=== PATIENT | female | born 1940 | race Caucasian/White ===

== ENCOUNTER 2021-03-19 12:19 | Emergency (ER) | payer OTHER, MEDICARE, SELFPAY ==
[2021-03-19 12:36] VITALS: BP 134/75; PULSE 82; RESP 16; TEMP 36.9; O2SAT 99
--- NOTE | 2021-03-19 12:41 | DI.RAD.S_ITS ---
PROCEDURE: XR FOREARM RT 2V INDICATIONS: fall, right FA pain TECHNIQUE: 2 views of the forearm were acquired. COMPARISON: None. FINDINGS: Bones: Subtle radiolucency and cortical irregularity involving distal radial shaft is seen concerning for subtle nondisplaced distal radial fracture. No suspicious bony lesions. Soft tissues: No suspicious soft tissue calcifications or masses. IMPRESSION: Suggestion of nondisplaced distal radial shaft fracture. Dictated by: Sukumar Sheikh M.D. on 03/19/2021 at 13:07 Approved by: Sukumar Sheikh M.D. on 03/19/2021 at 13:08
--- NOTE | 2021-03-19 14:07 | ED_ITS ---
HPI - Extremity Injury (Upper) General Chief Complaint: Extremity Injury, Upper Stated Complaint: Fall, Right Arm Injury Time Seen by Provider: 03/19/21 14:03 Source: patient Mode of arrival: Ambulatory Limitations: no limitations History of Present Illness HPI narrative: 80-year-old female nonsmoker with history of stage IV lung cancer presents with a family friend and a chief complaint of right forearm pain since suffering a ground level fall prior to her arrival. She had been in her normal state of health and was up hiking on [place] and she and her friend were attempting to take a selfie when she lost her balance from a seated position on a large rock and fell over onto her outstretched right arm. She now has pain in her wrist and forearm. She denies any head neck or back pain. She denies any chest pain or shortness of breath. She denies any prodromal symptoms and states this happened purely because she lost her balance. She has pain with pronation and supination of her right forearm but is otherwise well. She denies any elbow or shoulder pain. She denies numbness, tingling or weakness Related Data Previous Rx's Medication Instructions Recorded hydrocodone 5 mg-acetaminophen 325 1 tab PO Q4-6H PRN #14 tab 03/19/21 mg tablet Allergies Allergy/AdvReac Type Severity Reaction Status Date / Time No Known Drug Allergies Allergy Verified 03/19/21 12:40 Review of Systems Review of Systems Narrative: GENERAL: Denies chills, fatigue, malaise, fever, sweats. HEENT: Denies sinus pain, ear pain, sore throat, difficulty swallowing, dizziness. RESPIRATORY: Denies dyspnea, cough, wheezing, hemoptysis, sputum. CARDIOVASCULAR: Denies chest pain, palpitations, orthopnea, edema, GASTROINTESTINAL: Denies nausea, vomiting, abdominal pain, diarrhea, constipation, melena. : Denies dysuria, frequency, incontinence, hematuria, urinary retention. MUSCULOSKELETAL: See HPI SKIN: Denies rash, skin lesions, or other NEUROLOGIC: Denies weakness, headache, numbness, change in speech, confusion, s eizures, incoordination. PSYCHIATRIC: No concerning psychosocial issues. 12 point review of systems is negative except for those stated above Patient History Social History Smoking Status: Never smoker Smoking Status: Never smoker alcohol intake frequency: 0-2 drinks per day Substance Use Type: does not use Exam Narrative Exam Narrative: GEN: AOx3 and in mild distress EYES: Pupils are equal, round, and reactive to light and accommodation. Extraoccular muscles are intact bilaterally. There is no subconjunctival hemorrhage or exudate. CHEST: Lungs are clear to auscultation bilaterally and free of wheezes, rales, or rhonchi. Heart rate is regular rhythm, there are no murmurs, clicks, rubs, or gallops. There is no chest wall tenderness. ABD: Abdomen is soft and nontender. There is no guarding or rebound. Bowel sounds are normal in all 4 quadrants. There is no mass or organomegaly. EXT: Full but painful range of motion of right wrist and forearm, more tender with pronation and supination. Mild swelling over distal radius. This is closed, isolated and neurovascularly intact SKIN: Warm, pink, and dry. No erythema or rash Initial Vital Signs Initial Vital Signs: Vital Signs Temperature 98.4 F 03/19/21 12:36 Pulse Rate 82 03/19/21 12:36 Respiratory Rate 16 03/19/21 12:36 Blood Pressure 134/75 03/19/21 12:36 Pulse Oximetry 99 03/19/21 12:36 Procedures Orthopedic Splinting/Casting Injury #1: Side: right Upper Extremity Injury Location: wrist Upper Extremity Immobilizer: sugar tong splint Other Orthopedic Equipment: other (Sling) Post splinting neuro exam: intact Post splinting vascular exam: intact Placed by: Nursing Course Orders Ordered: ED Orders 03/19/21 12:41 XR forearm RT 2V Stat Vital Signs Vital signs: Vital Signs - 8 hr 03/19/21 12:36 Temperature 98.4 F Pulse Rate 82 Respiratory Rate 16 Blood Pressure 134/75 Pulse Oximetry 99 MDM - Extremity Injury (Upper) Imaging Data Extremity x-ray #1: Radiologist's Impression: [address] [id number] ReportSigned Patient: Rosita Cook JMR#: [id number]: 0 3Acct:[id number]/Sex: 80 / FDate of Service: 03/19/21Loc: EDAccession Number: [id number] Procedure: XR forearm RT 2V Ordering Provider: Elijah Espino D.O. PROCEDURE: XR FOREARM RT 2V INDICATIONS: fall, right FA pain TECHNIQUE: 2 views of the forearm were acquired. COMPARISON: None. FINDINGS: Bones: Subtle radiolucency and cortical irregularity involving distal radial shaft is seen concerning for subtle nondisplaced distal radial fracture. No suspicious bony lesions. Soft tissues: No suspicious soft tissue calcifications or masses. IMPRESSION: Suggestion of nondisplaced distal radial shaft fracture. Dictated by: Sukumar Sheikh M.D. on 03/19/2021 at 13:07 Approved by: Sukumar Sheikh M.D. on 03/19/2021 at 13:08 Discharge Plan Departure Patient Disposition: Home Clinical Impression: Distal radius fracture, right Qualifiers: Encounter type: initial encounter Fracture type: closed Fracture morphology: unspecified fracture morphology Qualified Code(s): S52.501A - Unspecified fracture of the lower end of right radius, initial encounter for closed fracture Instructions: DI for Distal Radius Fracture Activity Restrictions/Additional Instructions: *You have been diagnosed with [suggestion of non displaced distal radial shaft fracture] *What to do: *Please continue to take your regular medications as directed. [x ] New medication prescriptions sent to your pharmacy: [ [facility]] [ ] New medication written as a paper prescription [ ] No new medications given *Please follow up with your primary care provider in 2-3 days, call for an appointment. Let them know you were seen in the Emergency Department and that we ask that you be seen in follow up. We will electronically transmit a record of today's note if your PCP is in our system *If you do not have a primary care provider please contact the [facility] Resource line at [phone]. They will ask some questions about your medical history and help get you set up with a doctor in the community. *Return to Emergency Department if you should have any new, worsening or concerning symptoms, such as [fever greater than 101 F, shaking chills, worsening pain, persistent vomiting or other bothersome symptoms] Prescriptions: New hydrocodone-acetaminophen 5-325 mg tablet 1 tab PO Q4-6H PRN (Reason: pain) Qty: 14 RF: 0
[2021-03-19 14:57] VITALS: PULSE 90; RESP 16; O2SAT 99
== END 2021-03-19 14:59 | disposition home or self-care (01) ==
PROVIDERS: Emergency Provider Emergency Medicine
DX: S52.501A Unspecified fracture of the lower end of right radius, initial encounter for closed fracture (principal); W19.XXXA Unspecified fall, initial encounter
CPT/HCPCS: 29105; 73090; 99283